=== PATIENT | female | born 1955 | race Caucasian/White ===

== ENCOUNTER 2023-06-17 13:57 | Outpatient (RCR) | payer BC, SELFPAY | END 2023-06-17 23:59 | disposition home or self-care (01) | LOC: RPT 13:57 | PROVIDERS: ATTENDING PHYSICIAN Psychiatry & Neurology Neurology | DX: M54.17 Radiculopathy, lumbosacral region (principal); Z73.6 Limitation of activities due to disability; R26.89 Other abnormalities of gait and mobility; Z98.1 Arthrodesis status | CPT/HCPCS: 97110; 97140; 97162 ==

== ENCOUNTER → 2024-02-20 09:41 | Outpatient (REF) | payer BC, SELFPAY ==
[2024-02-20 11:07] LABS: % Basophils 1.2 % (0-2); % Eosinophils 5.4 % (0-6); % Immature Granulocytes 1.3 % (0-0.5); % Lymphocytes 28.5 % (20.5-51.1); % Monocytes 9.8 % (1.7-9.3); % Neutrophils 53.8 % (42.2-75.2); Absolute Basophils 0.1 10^3/uL (0-0.2); Absolute Eosinophils 0.3 10^3/uL (0-0.7); Absolute Immature Granulocytes 0.1 10^3/uL (0-0.05); Absolute Lymphocytes 1.7 10^3/uL (1.2-3.4); Absolute Monocytes 0.6 10^3/uL (0.1-0.6); Absolute Neutrophils 3.2 10^3/uL (1.4-6.5); Hematocrit 38.7 % (37.0-47.0); Hemoglobin 12.8 g/dL (12.0-16.0); Mean Corp Hgb Conc. 33.1 g/dL (33.0-37.0); Mean Corpuscular Volume 90.6 fL (81.0-99.0); Mean Platelet Volume 9.5 fL (7.4-10.4); Nucleated Red Blood Cells % 0 %; Platelet Count 320 10^3/uL (130-400); Red Blood Cell Count 4.27 10^6/uL (4.20-5.40); Red Cell Dist. Width 13.2 % (11.5-14.5); White Blood Cell Count 5.9 10^3/uL (4.8-10.8)
[2024-02-20 11:53] LABS: ALT (SGPT) 21 U/L (0-35); AST (SGOT) 21 U/L (14-36); Albumin 4.7 g/dl (3.5-5.0); Alkaline Phosphatase 53 U/L (38-126); Blood Urea Nitrogen 24 mg/dl (7-17); Calcium 9.8 mg/dl (8.4-10.2); Carbon Dioxide 26 mmol/L (22-30); Chloride 105 mmol/L (98-107); Glucose 104 mg/dl (70-99); HDL Cholesterol 46 mg/dl; Potassium 4.7 mmol/L (3.5-5.1); Sodium 144 mmol/L (135-145); Total Bilirubin 0.7 mg/dl (0.2-1.3); Total Cholesterol 302 mg/dl (50-199); eGFR 26.71
[2024-02-20 12:01] LABS: LDL Cholesterol, Calculated 167 mg/dl; Triglyceride 449 mg/dl (10-149); Very Low Density Lipoprotein 89 mg/dl (0-30)
[2024-02-20 12:23] LABS: LDL Cholesterol, Direct 151 mg/dl
[2024-02-20 12:44] LABS: Free T4 1.17 ng/dl (0.78-2.19)
== END ==
LOC: REG 09:41
PROVIDERS: ATTENDING PHYSICIAN Orthopaedic Surgery; FAMILY PHYSICIAN Nurse Practitioner Adult Health
DX: Z01.818 Encounter for other preprocedural examination (principal); I10 Essential (primary) hypertension; E78.2 Mixed hyperlipidemia; Z79.899 Other long term (current) drug therapy; Z13.29 Encounter for screening for other suspected endocrine disorder; Z00.00 Encounter for general adult medical examination without abnormal findings; R73.01 Impaired fasting glucose
CPT/HCPCS: 36415; 80053; 80061; 83036; 83721; 84439; 84443; 85025; 87070

== ENCOUNTER 2024-03-04 06:05 | Day surgery (SDC) | payer BC, SELFPAY ==
--- NOTE | 2024-02-20 16:11 | VNURNOTE ---
Patient is scheduled for an elective R BARNEY on 03/04/24- she is a same day patient. Spoke with patient prior to surgery. Introduced role of [facility] liaison.
Patient reports that she lives with her spouse in an in-law suite in a multi story house. Son lives in main house.
There are 2 steps to enter and several landings and stairs to the in-law suite on the second floor. She currently functions independently. She has a cane and a raised toilet seat. She will be obtaining a rolling walker.
PCP is Dr Cole.
Discussed orthopedic program and post surgical plans.
Reviewed that she will have [facility] services initially and will then start outpatient PT. She has Rx for outpatient PT and is scheduled at on 03/06. Patient selects [facility] for her home care needs.
Patient is in agreement with plan and states that her spouse and son will be home with her.
Referral placed in [facility].
Plan: [facility] then Outpt PT at 03/06
[2024-03-04] VITALS (16 sets, daily range): BP systolic 116–171; BP diastolic 61–74; BMI 28.0
[2024-03-04] MEDS: NORMOSOL-R/PLASMALYTE-A 1000 IV (06:36)
[2024-03-04] MEDS: TYLENOL 650 MG PO (06:36)
[2024-03-04] MEDS: CELEBREX 200 MG PO (06:55)
[2024-03-04] MEDS: DILAUDID 0.5 MG IV ×3 (08:18→08:56)
[2024-03-04] MEDS: TYLENOL 1000 MG PO (10:35)
[2024-03-04] MEDS: ANCEF 5 IV (11:04)
[2024-03-04] MEDS: ROXICODONE 5 MG PO (11:16)
== END 2024-03-04 12:13 | disposition home health service (06) ==
LOC: SDS 06:05
PROVIDERS: ATTENDING PHYSICIAN Orthopaedic Surgery; FAMILY PHYSICIAN Family Medicine
DX: M16.11 Unilateral primary osteoarthritis, right hip (principal)
CPT/HCPCS: 27130; 73502; 97162; C1776

== ENCOUNTER 2024-03-25 13:52 | Outpatient (RCR) | payer BC, SELFPAY | END 2024-03-25 23:59 | disposition home or self-care (01) | LOC: RPT 13:52 | PROVIDERS: ATTENDING PHYSICIAN Orthopaedic Surgery; FAMILY PHYSICIAN Family Medicine | DX: Z96.641 Presence of right artificial hip joint; Z73.6 Limitation of activities due to disability; Z47.1 Aftercare following joint replacement surgery | CPT/HCPCS: 97010; 97110; 97112; 97116; 97140; 97162; 97530 ==

== ENCOUNTER 2024-04-20 15:52 | Outpatient (RCR) | payer BC, SELFPAY | END 2024-04-20 23:59 | disposition home or self-care (01) | LOC: RPT 15:52 | PROVIDERS: ATTENDING PHYSICIAN Orthopaedic Surgery; FAMILY PHYSICIAN Family Medicine | DX: Z47.1 Aftercare following joint replacement surgery (principal); M16.11 Unilateral primary osteoarthritis, right hip; Z73.6 Limitation of activities due to disability; M62.81 Muscle weakness (generalized); M54.9 Dorsalgia, unspecified; R26.89 Other abnormalities of gait and mobility; M25.551 Pain in right hip; Z96.641 Presence of right artificial hip joint | CPT/HCPCS: 97110; 97112; 97140; 97530 ==

== ENCOUNTER 2024-04-27 11:40 | Emergency (ER) | payer BC, SELFPAY ==
[2024-04-27 11:56] VITALS: BMI 26.3
[2024-04-27 11:59] VITALS: BP 128/77
[2024-04-27 12:01] VITALS: BP 128/77
[2024-04-27 12:20] LABS: % Basophils 0.2 % (0-2); % Eosinophils 0.7 % (0-6); % Immature Granulocytes 0.4 % (0-0.5); % Lymphocytes 5.2 % (20.5-51.1); % Monocytes 3.6 % (1.7-9.3); % Neutrophils 89.9 % (42.2-75.2); Absolute Eosinophils 0.1 10^3/uL (0-0.7); Absolute Lymphocytes 0.6 10^3/uL (1.2-3.4); Absolute Monocytes 0.4 10^3/uL (0.1-0.6); Absolute Neutrophils 10.1 10^3/uL (1.4-6.5); Hematocrit 39.5 % (37.0-47.0); Hemoglobin 12.9 g/dL (12.0-16.0); Mean Corp Hgb Conc. 32.7 g/dL (33.0-37.0); Mean Corpuscular Hgb 30.6 pg (27.0-31.0); Mean Corpuscular Volume 93.8 fL (81.0-99.0); Mean Platelet Volume 9.2 fL (7.4-10.4); Nucleated Red Blood Cells % 0 %; Platelet Count 346 10^3/uL (130-400); Red Blood Cell Count 4.21 10^6/uL (4.20-5.40); White Blood Cell Count 11.2 10^3/uL (4.8-10.8)
--- NOTE | 2024-04-27 12:25 | ED.GENMED ---
History of Present Illness
General
Chief Complaint: Abdominal Symptoms
Time Seen by Provider: 04/27/24 12:07
History of Present Illness
History of Present Illness:
TIME OF INITIAL ENCOUNTER: 12:25 PM
HPI: About 10 hours ago, the patient had abrupt onset of vomiting. She started having some pink-tinged vomitus after the initial vomiting episode. She is on Eliquis. She then also developed diarrhea. She has no significant abdominal pain. She
is not currently on any antibiotics.
EXAM:
GENERAL: Well appearing in no distress
HEENT: Moist oral mucosa
CARDIOVASCULAR: No murmurs, normal heart rate, regular rhythm, No chest wall tenderness
PULMONARY: No respiratory distress, breath sounds are clear and equal
ABDOMEN: Soft with no peritoneal signs, no tenderness
NEUROLOGIC: Excellent strength all extremities, no coordination deficits
PSYCHIATRIC: Appropriate mental status, normal insight and judgement
EXTREMITIES: Nontender, no edema, moves all extremities equally
SKIN: No rash, no lesions
NUMBER AND COMPLEXITY OF PROBLEMS ADDRESSED AT THE ENCOUNTER
� Chronic conditions affecting care: CKD, has had pelvic mass resected, has had submassive PE in the past currently on Eliquis
� Acute Exacerbation and/or Progression of Chronic Illness: This is an acute problem
� Differential Diagnosis includes: Viral gastroenteritis, foodborne illness, highly doubt bowel obstruction as the patient has associated diarrhea no significant pain
AMOUNT AND/OR COMPLEXITY OF DATA TO BE REVIEWED AND ANALYZED
� I performed an independent evaluation of and my interpretation is:
EKG:
CT:
X-rays:
Laboratory Studies: White count 11.2, hemoglobin 12.9, lipase and LFTs are normal, creatinine is 1.9 which is near baseline
Other:
� Review of other/old records: I reviewed records. The patient had a resection of a pelvic mass in May 2020. Old records also show that her creatinine at baseline hovers around 2.0.
� Clinical information was obtained by an independent historian: None needed
� Prescriptions/Medications Considered but not given: Offered, but patient declined prescription for Zofran
� Further testing considered but not performed: Considered CT imaging however the patient has both vomiting and diarrhea and no abdominal pain�will hold off on CT at this point.
RISK OF COMPLICATIONS AND/OR MORBIDITY OR MORTALITY OF PATIENT MANAGEMENT
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
� Discussion with other providers:
� Escalation of care including admission/observation vs risk of discharge considered: The patient presents with vomiting and diarrhea. She was given Zofran, Pepcid, as well as IV fluids. She currently appears well-hydrated.
Renal function is at baseline.
ANY OTHER UPDATES:
2:30 PM: On reassessment, the patient overall feels improved after meds given. Suspect foodborne illness versus viral gastroenteritis. Encouraged to return here if worse.
Past History
Past History
ED Past Medical History: Arrthythmia (PVCs), Hypercholesterolemia and Other (Hepatitis C)
ED Past Surgical History: (Times 2, 15 and 19 years ago) and Other (Anterior/posterior fusion of the back with rods 5 years ago.)
Social History
Tobacco: Non-smoker
Alcohol: None
Drug: None
Personal:
Living: with family
Employment: Employed
Family History
Family History: Other (Noncontributory)
Phy Exam
Physical Exam
Physical Exam:
See HPI
Course
Orders/Labs/Results
Orders:
Orders
04/27/24 12:00
Complete Blood Count/With Diff Urgent
Comprehensive Metabolic Panel Urgent
Lipase Urgent
04/27/24 12:33
0.9% Sodium Chloride 1000 ml [Nss] 1,000 ml IV BOLUS
Ondansetron Injectable [Zofran] 4 mg IV NOW STA
Abnormal Lab Results
04/27/24
12:00
WBC 11.2 H 10^3/uL
(4.8-10.8)
MCHC 32.7 L g/dL
(33.0-37.0)
Absolute Neuts (auto) 10.1 H 10^3/uL
(1.4-6.5)
Absolute Lymphs (auto) 0.6 L 10^3/uL
(1.2-3.4)
Neutrophils % 89.9 H %
(42.2-75.2)
Lymphocytes % 5.2 L %
(20.5-51.1)
BUN 34 H mg/dl
(7-17)
Creatinine 1.9 H mg/dL
(0.6-1.0)
Glucose 142 H mg/dl
(70-99)
04/27/24 12:00
04/27/24 12:00
Vital Signs
Initial and Last Documented VS:
Initial Vital Signs
Temp Pulse Resp BP Pulse Ox
37.1 C 85 20 128/77 98
04/27/24 11:59 04/27/24 11:59 04/27/24 11:59 04/27/24 11:59 04/27/24 11:59
Last Documented Vital Signs
Temp Pulse Resp BP Pulse Ox
37.1 C 76 19 125/75 96
04/27/24 11:59 04/27/24 13:00 04/27/24 13:00 04/27/24 13:00 04/27/24 13:00
*Critical Care Note
Total Time (30-74mins, 75-104mins- exclusive of procedures): Not Applicable
ED Attending Note
-
Portions of this chart may have been created with voice recognition software.� Occasional wrong word or��sound alike� substitutions may have occurred due to the inherent limitations of voice recognition software.
Discharge Plan
Departure
Prescriptions:
No Action
sertraline 25 MG tablet
50 mg PO HS
multivitamin with folic acid [Tab-A-Milagro] 1 TABLET tablet
1 tab PO DAILY
ascorbic acid (vitamin C) [Vitamin C] 500 MG tablet
1,000 mg PO DAILY
vitamin B complex 1 TAB tablet
1 tab PO DAILY
cholecalciferol (vitamin D3) 2,000 UNITS tablet
2,000 units PO DAILY
Eliquis 5 MG tablet
5 mg PO BID
mupirocin 2 % Ointment
1 applic TOPICAL BID
Patient Comments:
started treatment saturday03/01/24 and completed BID
atenolol 25 mg Tablet
25 mg PO HS
docusate sodium [Colace] 100 mg capsule
100 mg PO BID Qty: 30 0RF
sennosides [senna] 8.6 mg tablet
17.2 mg PO BID Qty: 30 0RF
Eliquis 2.5 mg tablet
2.5 mg PO BID Qty: 5 0RF
Rx Instructions:
Cut 5 mg tab in 05/28 (= 2.5 mg) and take 2x daily from 10/9 PM to 10/11 PM.
DO NOT resume Eliquis 5 mg 2x daily until AM of 03/07
ondansetron HCl 4 mg Tablet
4 mg PO Q6H PRN (Reason: nausea) Qty: 30 0RF
Patient Comments:
post op
Rx Instructions:
Prescribed pre-op by surgeon's office.
amlodipine [Norvasc] 2.5 MG tablet
2.5 mg PO DAILY Qty: 0 0RF
Rx Instructions:
HOLD IF systolic blood pressure <130 while on Oxycodone.
acetaminophen 500 mg Tablet
1,000 mg PO Q6H Qty: 0 0RF
Rx Instructions:
DO NOT exceed >4000 mg daily.
dexamethasone 4 mg Tablet
4 mg PO Q12H Qty: 7 0RF
Patient Comments:
post op
Rx Instructions:
Start night of discharge and continue every 12 hours until finished.
Take with food.
oxycodone 5 mg Tablet
5 - 10 mg PO Q6H PRN (Reason: moderate-severe pain) Qty: 30 0RF
Patient Comments:
post op
Rx Instructions:
1 tab for moderate pain, 2 if severe.
Dx total joint.
Referrals:
Angel Cole Jr., DO [Family Provider] -
Interventions
Interventions:
*Risk Screen - Suicide Last Done: 04/27/24 11:45
*General Assessment Last Done: 04/27/24 11:56
*Neglect/Abuse Screening Last Done: 04/27/24 11:45
ED- Fall Risk Assessment Last Done: 04/27/24 11:56
*ED COVID-19 Vaccine History Last Done: 04/27/24 11:56
[facility] Assessment Last Done: 04/27/24 11:56
Discharge Date and Time
Print Language: IRISH
[2024-04-27 12:28] LABS: ALT (SGPT) 17 U/L (0-35); AST (SGOT) 19 U/L (14-36); Albumin 4.6 g/dl (3.5-5.0); Alkaline Phosphatase 55 U/L (38-126); Blood Urea Nitrogen 34 mg/dl (7-17); Calcium 9.3 mg/dl (8.4-10.2); Carbon Dioxide 24 mmol/L (22-30); Chloride 105 mmol/L (98-107); Estimated Creatinine Clearance 26 ml/min; Glucose 142 mg/dl (70-99); Lipase 145 U/L (23-300); Potassium 4.5 mmol/L (3.5-5.1); Sodium 141 mmol/L (135-145); Total Bilirubin 0.6 mg/dl (0.2-1.3); eGFR 28.41
[2024-04-27] MEDS: NSS 1000 IV (12:38)
[2024-04-27] MEDS: ZOFRAN 4 MG IV (12:39)
[2024-04-27 13:00] VITALS: BP 125/75
[2024-04-27 14:00] VITALS: BP 126/60
== END 2024-04-27 15:00 | disposition home or self-care (01) ==
LOC: EMR 11:40
PROVIDERS: EMERGENCY PHYSICIAN Emergency Medicine; FAMILY PHYSICIAN Family Medicine
DX: R11.2 Nausea with vomiting, unspecified (principal); R19.7 Diarrhea, unspecified
CPT/HCPCS: 99284; 96374; 96361; 80053; 83690; 85025

== ENCOUNTER 2024-05-04 16:11 | Outpatient (RCR) | payer BC, SELFPAY | END 2024-05-04 23:59 | disposition home or self-care (01) | LOC: RPT 16:11 | PROVIDERS: ATTENDING PHYSICIAN Orthopaedic Surgery; FAMILY PHYSICIAN Family Medicine | DX: Z47.1 Aftercare following joint replacement surgery (principal); M16.11 Unilateral primary osteoarthritis, right hip; Z73.6 Limitation of activities due to disability; M62.81 Muscle weakness (generalized); M54.9 Dorsalgia, unspecified; R26.89 Other abnormalities of gait and mobility; M25.551 Pain in right hip; Z96.641 Presence of right artificial hip joint | CPT/HCPCS: 97110; 97112; 97530 ==

== ENCOUNTER → 2024-06-19 12:54 | Outpatient (REF) | payer BC, SELFPAY | LOC: WDC 12:54 | PROVIDERS: ATTENDING PHYSICIAN Obstetrics & Gynecology; FAMILY PHYSICIAN Family Medicine | DX: Z12.31 Encounter for screening mammogram for malignant neoplasm of breast (principal); R92.8 Other abnormal and inconclusive findings on diagnostic imaging of breast | CPT/HCPCS: 77063; 77067 ==

== ENCOUNTER → 2024-07-27 08:58 | Outpatient (REF) | payer BC, SELFPAY ==
[2024-07-27 09:52] LABS: % Eosinophils 4.9 % (0-6); % Immature Granulocytes 0.5 % (0-0.5); % Lymphocytes 19.9 % (20.5-51.1); % Monocytes 7.5 % (1.7-9.3); % Neutrophils 66.2 % (42.2-75.2); Absolute Basophils 0.1 10^3/uL (0-0.2); Absolute Eosinophils 0.4 10^3/uL (0-0.7); Absolute Lymphocytes 1.6 10^3/uL (1.2-3.4); Absolute Monocytes 0.6 10^3/uL (0.1-0.6); Absolute Neutrophils 5.3 10^3/uL (1.4-6.5); Hemoglobin 13.1 g/dL (12.0-16.0); Mean Corp Hgb Conc. 32.8 g/dL (33.0-37.0); Mean Corpuscular Hgb 30.4 pg (27.0-31.0); Mean Corpuscular Volume 92.8 fL (81.0-99.0); Mean Platelet Volume 9.3 fL (7.4-10.4); Nucleated Red Blood Cells % 0 %; Platelet Count 317 10^3/uL (130-400); Red Blood Cell Count 4.31 10^6/uL (4.20-5.40); Red Cell Dist. Width 12.3 % (11.5-14.5)
[2024-07-27 10:25] LABS: Glycohemoglobin (HgbA1c) 6.1 % (4.0-5.6)
[2024-07-27 10:28] LABS: ALT (SGPT) 18 U/L (0-35); AST (SGOT) 19 U/L (14-36); Albumin 4.8 g/dl (3.5-5.0); Alkaline Phosphatase 63 U/L (38-126); Blood Urea Nitrogen 32 mg/dl (7-17); Calcium 9.7 mg/dl (8.4-10.2); Carbon Dioxide 25 mmol/L (22-30); Chloride 104 mmol/L (98-107); Glucose 120 mg/dl (70-99); HDL Cholesterol 49 mg/dl; LDL Cholesterol, Calculated 194 mg/dl; Potassium 4.7 mmol/L (3.5-5.1); Sodium 139 mmol/L (135-145); Total Bilirubin 0.8 mg/dl (0.2-1.3); Total Cholesterol 302 mg/dl (50-199); Total Protein 7.1 g/dl (6.3-8.2); Triglyceride 295 mg/dl (10-149); Very Low Density Lipoprotein 59 mg/dl (0-30); eGFR 26.71
[2024-07-27 11:26] LABS: Free T4 1.09 ng/dl (0.78-2.19)
== END ==
LOC: REG 08:58
PROVIDERS: ATTENDING PHYSICIAN Family Medicine
DX: R94.6 Abnormal results of thyroid function studies (principal); E04.1 Nontoxic single thyroid nodule; E78.2 Mixed hyperlipidemia; I10 Essential (primary) hypertension; N18.32 Chronic kidney disease, stage 3b; Z00.00 Encounter for general adult medical examination without abnormal findings; E83.52 Hypercalcemia; E87.5 Hyperkalemia
CPT/HCPCS: 36415; 80053; 80061; 83036; 84439; 84443; 85025

== ENCOUNTER → 2024-08-31 15:47 | Outpatient (REF) | payer BC, SELFPAY | LOC: PAVMRI 15:47 | PROVIDERS: ATTENDING PHYSICIAN Family Medicine | DX: K86.2 Cyst of pancreas (principal) | CPT/HCPCS: 74181 ==

== ENCOUNTER → 2025-05-18 09:17 | Outpatient (REF) | payer BC, SELFPAY ==
[2025-05-18 09:53] LABS: Hematocrit 40.0 % (37.0-47.0); Hemoglobin 13.2 g/dL (12.0-16.0); Mean Corp Hgb Conc. 33.0 g/dL (33.0-37.0); Mean Corpuscular Volume 89.5 fL (81.0-99.0); Nucleated Red Blood Cells % 0 %; Platelet Count 324 10^3/uL (130-400); Red Cell Dist. Width 12.2 % (11.5-14.5)
[2025-05-18 10:45] LABS: ALT (SGPT) 19 U/L (0-35); AST (SGOT) 20 U/L (14-36); Albumin 5.0 g/dl (3.5-5.0); Alkaline Phosphatase 60 U/L (38-126); Blood Urea Nitrogen 32 mg/dl (7-17); Calcium 9.8 mg/dl (8.4-10.2); Carbon Dioxide 26 mmol/L (22-30); Chloride 104 mmol/L (98-107); Glucose 112 mg/dl (70-99); HDL Cholesterol 58 mg/dl; LDL Cholesterol, Calculated 182 mg/dl; Potassium 4.8 mmol/L (3.5-5.1); Sodium 140 mmol/L (135-145); Total Protein 8.0 g/dl (6.3-8.2); Very Low Density Lipoprotein 59 mg/dl (0-30); eGFR 26.54
[2025-05-18 11:20] LABS: Glycohemoglobin (HgbA1c) 6.1 % (4.0-5.9)
== END ==
LOC: REG 09:17
PROVIDERS: ATTENDING PHYSICIAN Family Medicine
DX: R73.02 Impaired glucose tolerance (oral) (principal); N18.32 Chronic kidney disease, stage 3b; E78.2 Mixed hyperlipidemia; E04.1 Nontoxic single thyroid nodule; R94.6 Abnormal results of thyroid function studies
CPT/HCPCS: 36415; 80053; 80061; 83036; 84443; 85025